=== PATIENT | female | born 1985 | race Caucasian/White ===

== ENCOUNTER → 2020-02-29 | Outpatient (CLI) | payer OTHER ==
[2020-02-29 16:39] LABS: Basophils # (A) 0.1 k/uL (0-0.2); Basophils % (A) 1 %; Eosinophils # (A) 0.1 k/uL (0-0.7); Eosinophils % (A) 2 %; HCT 39.8 % (34.0-46.0); HGB 13.6 gm/dL (11.4-16.0); Lymphocytes # (A) 1.8 k/uL (1.0-4.8); Lymphocytes % (A) 25 %; MCH 33.1 pg (25.0-35.0); MCHC 34.2 g/dL (31.0-37.0); MCV 96.8 fL (80.0-100.0); Mean Platelet Volume 7.4; Monocytes # (A) 0.3 k/uL (0-1.0); Monocytes % (A) 5 %; Neutrophils # (A) 4.8 k/uL (1.3-7.7); Neutrophils % (A) 67 %; Platelet Count 288 k/uL (150-450); RBC 4.11 m/uL (3.80-5.40); RDW 11.4 % (11.5-15.5); WBC 7.2 k/uL (3.8-10.6)
--- NOTE | 2020-02-29 16:44 | US ---
EXAMINATION TYPE: Transabdominal DATE OF EXAM: 02/29/2020 4:09 PM COMPARISON: NONE CLINICAL HISTORY: Z36 DATES AND VIABILITY. EXAM PERFORMED: EXAM MEASUREMENTS: GESTATIONAL AGE / DATING Physician Established: Not yet established Dates by LMP: (7 weeks/5 days) EDC: 10/12/2020 Dates by First Scan: No previous this is first scan Dates by Current Scan for: (7 weeks/6 days) EDC: 10/11/2020 MATERNAL ANATOMY Uterus: 9.0 x 5.1 x 5.5 cm Right Ovary: 3.4 x 2.3 x 2.2 cm Left Ovary: 2.1 x 1.0 x 1.1 cm Post CDS / Adnexa: Small amount of free fluid in cul de sac Presence of free fluid: Yes Presence of corpus luteal cyst: Yes, right ovary measuring 2.3 x 2.0 x 1.6 cm Presence of subchorionic bleed: Yes, measuring 2.4 cm GESTATION / SURVEY CRL: 1.5 cm 7weeks/6 days) Yolk Sac (normal less than 6mm): 3 mm Heart Rate: 146 bpm Rhythm: Normal IUP: Viable IUP Date of LMP: 01/06/2020 Beta HcG (if available): Not available at this time Viable IUP, measurements consistent with dates. Possible subchorionic bleed measuring 2.4 cm IMPRESSION: Single intrauterine gestation estimated at 7 weeks 6 days gestation based on the crown-rump length. C ardiac activity measures 146 bpm. 2. Subchorionic hemorrhage may be adjacent to the gestational sac.
[2020-03-01 01:17] LABS: HIV 2 AB Non-Reactive (Non-Reactive); HIV AB P24 Non-Reactive (Non-Reactive); HIV P24 AG Non-Reactive (Non-Reactive)
== END | disposition home or self-care (01) ==
LOC: RADUSWWP 15:32
PROVIDERS: ATTEND Obstetrics & Gynecology
DX: R58 Hemorrhage, not elsewhere classified (principal); Z3A.01 Less than 8 weeks gestation of pregnancy; Z11.3 Encounter for screening for infections with a predominantly sexual mode of transmission
CPT/HCPCS: 76801; 76817; 84702; 85025; 86850; 86900; 86901; 87390